=== PATIENT | male | born 1975 | race Caucasian/White ===

== ENCOUNTER 2017-04-18 07:24 | Emergency (ER) | payer BC, OTHER ==
[2017-04-18 07:35] VITALS: TEMP 98; BMI 27.9
[2017-04-18] MEDS ORDERED: SODIUM CHLORIDE 0.9% 1000 ML INFUS.BAG IV ONE (07:57)
[2017-04-18] MEDS ORDERED: ONDANSETRON 4 MG/2 ML VIAL IVPUSH ONE (07:57)
[2017-04-18] MEDS ORDERED: ONDANSETRON 4 MG/2 ML VIAL ONE (08:07)
[2017-04-18 08:49] LABS: BASOPHIL 0.7 % (0-2.0); EOSINOPHIL 2.5 % (0-4.5); MCH 28.6 pg (25.7-33.7); MCHC 33.5 g/dl (32.0-35.9); MEAN CELL VOLUME 85.4 fl (80-96); MEAN PLT VOLUME 8.8 fl (7.5-11.1); NEUTROPHILS 59.9 % (42.8-82.8); PLATELET COUNT 173 K/MM3 (134-434); RDW 13.6 % (11.9-15.9); WHITE BLOOD COUNT 5.5 K/mm3 (4.0-10.0)
[2017-04-18 09:03] LABS: ALBUMIN 3.9 g/dl (3.4-5.0); ANION GAP 4 (8-16); BILIRUBIN,TOTAL 0.5 mg/dL (0.2-1.0); CALCIUM 8.9 mg/dL (8.5-10.1); CO2 31 mmol/L (21-32); CREATININE 1.3 mg/dL (0.7-1.3); GLUCOSE,RANDOM 87 mg/dL (74-106); SGOT/AST 20 U/L (15-37); SGPT/ALT 29 U/L (12-78)
[2017-04-18 09:04] LABS: ALK PHOS 55 U/L (45-117); TOT PROT 6.9 g/dl (6.4-8.2)
[2017-04-18] MEDS ORDERED: FAMOTIDINE 20 MG/50 ML IVPB 50 ML IVPB ONE (09:25)
[2017-04-18] MEDS ORDERED: LIDOCAINE VISCOUS 2% ORAL/TOP 100 ML BOTTLE MM ONE (09:28)
[2017-04-18] MEDS ORDERED: MAG HYDROX/AL HYDROX/SIMETH 30 ML UNIT-DOSE CUP PO ONE (09:28)
--- NOTE | 2017-04-18 09:44 | PDOC ---
History of Present Illness - General History Source: Patient, Significant Other Exam Limitations: No Limitations - History of Present Illness Initial Comments: 04/18/17 09:45 The patient is a 42 year old male with a significant past medical history of gallstones, GERD, and bipolar disorder who presents to the emergency department with epigastric pain for approximately 1 month. He describes the epigastric pain as a squeezing, dull ache, rated 6/10 in severity. He notes that the epigastric pain sometimes radiates to his mid back. Patient reports he has had similar pain in the past beginning approximately 1 year ago, but this episode worsened 2 weeks ago after he consumed alcohol. He notes that the epigastric pain is usually exacerbated by spicy foods, fried foods, and alcohol. However, this past week patient has noted the epigastric pain is exacerbated with any food. The patient reports associated nausea and diaphoresis with his epigastric pain. Patient reports visiting his GI doctor last year where he had an endoscopy and ultrasound for gallstones. Patient reports being prescribed Protonix for the gallstones. The patient denies chest pain, shortness of breath, headache and dizziness. Denies fever, chills, vomit, diarrhea and constipation. Denies dysuria, frequency, urgency and hematuria. Allergies: NKA Past surgical history: Double hernia repair Social history: Occasional alcohol use. GI Doctor: Dr. Melgar <Pelon Crawford - Last Filed: 04/18/17 09:55> <Radha De La Cruz - Last Filed: 04/18/17 10:25> - General Chief Complaint: Pain, Acute Stated Complaint: STOMACH PAIN Past History <Pelon Crawford - Last Filed: 04/18/17 09:55> - Past Medical History Psychiatric Problems: Yes - Surgical History Abdominal Surgery: Yes (ing.hernia bilat) - Immunization History Immunization Up to Date: Yes - Psycho/Social/Smoking Cessation Hx Anxiety: Yes Suicidal Ideation: No Smoking Status: No Smoking History: Never smoked Have you smoked in the past 12 months: No Number of Cigarettes Smoked Daily: 0 Hx Alcohol Use: Yes (occasionally) Drug/Substance Use Hx: No Substance Use Type: Alcohol <Radha De La Cruz - Last Filed: 04/18/17 10:25> - Past Medical History Allergies/Adverse Reactions: Allergies Allergy/AdvReac Type Severity Reaction Status Date / Time No Known Allergies Allergy Verified 04/18/17 07:35 Home Medications: Ambulatory Orders Aspirin/Acetaminophen/Caffeine [Excedrin Migraine Caplet] 1 each PO PRN Naproxen Sodium [Aleve] 220 mg PO PRN 05/17/16 Pantoprazole Sodium [Protonix -] 40 mg PO DAILY #30 tablet.ec 05/18/16 Review of Systems - Review of Systems Comments:: 04/18/17 09:46 GENERAL/CONSTITUTIONAL: (+)Diaphoresis. No fever or chills. No weakness. HEAD, EYES, EARS, NOSE AND THROAT: No change in vision. No ear pain or discharge. No sore throat. CARDIOVASCULAR: No chest pain or shortness of breath. RESPIRATORY: No cough, wheezing, or hemoptysis. GASTROINTESTINAL: (+)Epigastric pain. (+) Nausea. No vomiting, diarrhea or constipation. GENITOURINARY: No dysuria, frequency, or change in urination. MUSCULOSKELETAL: (+) Midback pain. No joint pain. No neck pain. SKIN: No rash NEUROLOGIC: No headache, vertigo, loss of consciousness, or change in strength/ sensation. ENDOCRINE: No increased thirst. No abnormal weight change. HEMATOLOGIC/LYMPHATIC: No anemia, easy bleeding, or history of blood clots. ALLERGIC/IMMUNOLOGIC: No hives or skin allergy. <Pelon Crawford - Last Filed: 04/18/17 09:55> *Physical Exam - Vital Signs Last Vital Signs Temp Pulse Resp BP Pulse Ox 98.0 F 67 16 116/70 98 04/18/17 07:33 04/18/17 07:33 04/18/17 07:33 04/18/17 07:33 04/18/17 07:33 - Physical Exam Comments: 04/18/17 09:47 GENERAL: Awake, alert, and fully oriented, in no acute distress HEAD: No signs of trauma EYES: PERRLA, EOMI, sclera anicteric, conjunctiva clear ENT: Auricles normal inspection, hearing grossly normal, nares patent, oropharynx clear without exudates. Moist mucosa NECK: Normal ROM, supple, no lymphadenopathy, JVD, or masses LUNGS: Breath sounds equal, clear to auscultation bilaterally. No wheezes, and no crackles HEART: Regular rate and rhythm, normal S1 and S2, no murmurs, rubs or gallops ABDOMEN: (+) Mild epigastric tenderness. Normoactive bowel sounds. No guarding , no rebound. No masses. Negative [place]. BACK: No CVA tenderness. EXTREMITIES: Normal range of motion, no edema. No clubbing or cyanosis. No cords, erythema, or tenderness. DP/PT pulses 2+ and symmetric. NEUROLOGICAL: Cranial nerves II through XII grossly intact. Normal speech, normal gait SKIN: Warm, Dry, normal turgor, no rashes or lesions noted. <Pelon Crawford - Last Filed: 04/18/17 09:55> - Vital Signs Last Vital Signs Temp Pulse Resp BP Pulse Ox 98.0 F 67 16 116/70 98 04/18/17 07:33 04/18/17 07:33 04/18/17 07:33 04/18/17 07:33 04/18/17 07:33 <Radha De La Cruz - Last Filed: 04/18/17 10:25> ED Treatment Course - LABORATORY CBC & Chemistry Diagram: 04/18/17 08:35 04/18/17 08:35 - ADDITIONAL ORDERS Additional order review: Laboratory Results 04/18/17 08:35 Sodium 139 Potassium 4.1 Chloride 104 Carbon Dioxide 31 Anion Gap 4 L BUN 18 Creatinine 1.3 Creat Clearance w eGFR > 60 Random Glucose 87 Calcium 8.9 Total Bilirubin 0.5 AST 20 ALT 29 Alkaline Phosphatase 55 Total Protein 6.9 Albumin 3.9 Lipase 196 04/18/17 08:35 RBC 5.09 MCV 85.4 MCHC 33.5 RDW 13.6 MPV 8.8 Neutrophils % 59.9 Lymphocytes % 26.5 Monocytes % 10.4 H Eosinophils % 2.5 Basophils % 0.7 - RADIOLOGY Radiograph Interpretation: 04/18/17 09:48 Exam: Abdominal Ultrasound, interpreted by Dr. Carmen Reviewed by Dr. De La Cruz Impression: Cholelithiasis - Medications Given in the ED: ED Medications Discontinued Medications Generic Name Dose Route Start Last Admin Trade Name Freq PRN Reason Stop Dose Admin Ondansetron HCl 4 mg 04/18/17 07:57 04/18/17 08:20 Zofran Injection IVPUSH 04/18/17 07:58 4 mg ONCE ONE Administration Sodium Chloride 1,000 ml 04/18/17 07:57 04/18/17 08:19 Normal Saline - IV 04/18/17 07:58 1,000 ml ONCE ONE Administration <Pelon Crawford - Last Filed: 04/18/17 09:55> - LABORATORY CBC & Chemistry Diagram: 04/18/17 08:35 04/18/17 08:35 - ADDITIONAL ORDERS Additional order review: Laboratory Results 04/18/17 08:35 Sodium 139 Potassium 4.1 Chloride 104 Carbon Dioxide 31 Anion Gap 4 L BUN 18 Creatinine 1.3 Creat Clearance w eGFR > 60 Random Glucose 87 Calcium 8.9 Total Bilirubin 0.5 AST 20 ALT 29 Alkaline Phosphatase 55 Total Protein 6.9 Albumin 3.9 Lipase 196 04/18/17 08:35 RBC 5.09 MCV 85.4 MCHC 33.5 RDW 13.6 MPV 8.8 Neutrophils % 59.9 Lymphocytes % 26.5 Monocytes % 10.4 H Eosinophils % 2.5 Basophils % 0.7 - RADIOLOGY Radiology Studies Ordered: Category Date Time Status ABDOMEN US -LIMITED [US] Stat Ultrasound 04/18/17 08:13 Completed - Medications Given in the ED: ED Medications Discontinued Medications Generic Name Dose Route Start Last Admin Trade Name Famq PRN Reason Stop Dose Admin Ondansetron HCl 4 mg 04/18/17 07:57 04/18/17 08:20 Zofran Injection IVPUSH 04/18/17 07:58 4 mg ONCE ONE Administration Sodium Chloride 1,000 ml 04/18/17 07:57 04/18/17 08:19 Normal Saline - IV 04/18/17 07:58 1,000 ml ONCE ONE Administration <Radha De La Cruz - Last Filed: 04/18/17 10:25> Medical Decision Making - Medical Decision Making 04/18/17 09:40 42 yo male with h/o gallstones here today with c/o epigastric pain x one month. has had intermittent pain for one year, no vomiting, nausea only. no f/c no cp no sob. pain sharp, radiating to back. was able to eat dinner last night pain began shortly after. no change to stool. h see dr. sharpe, ( GI). has had EGD, unremarkable per pt, and us gb with stones. no primary doctor. no prior eval by surgeon. on exam awake alert. lungs normal. heart RRR. abbd min epigastric ttp. no rebound neg zavaleta's. nuero awake alert moves all ext. skin warm and ry plan: lft, lipase us g b. differnetial gastritis, cholelithiasisi, cholecystitis , pancreatitis. GERD. plan labs meds us reassess. 04/18/17 10:22 pt feeling improved after meds, tolerating PO. labs unremarkable. LFT and lipase normal. us with gallstones. will dc with surgery followup. plan d/w dr sharpe/. pt has appt scheduled in few weeks. <Radha De La Cruz - Last Filed: 04/18/17 10:25> *DC/Admit/Observation/Transfer - Attestations Scribe Attestion: 04/18/17 09:48 Documentation prepared by Pelon Crawford, acting as medical laboratory technical officer for Radha De La Cruz MD. <Pelon Crawford - Last Filed: 04/18/17 09:55> - Discharge Dispostion Admit: No <Radha De La Cruz - Last Filed: 04/18/17 10:25> Diagnosis at time of Disposition: Biliary colic - Discharge Dispostion Disposition: HOME Condition at time of disposition: Improved - Referrals Referrals: Nathaniel Melgar MD [Staff Physician] - Lucio Neville MD [Staff Physician] - - Patient Instructions Printed Discharge Instructions: Gallstones Additional Instructions: follow up with your primary doctor . if you do not have one should call your insurance company for list of providers. you should also follow up with dr. Sharpe, see referral number. you can call to see a surgeon to discuss elective gallbladder surgery for persistant symptoms, see referral for surgeon DR. Neville and call to schedule. return for fever, persistant pain, vomiting or any concerns.
[2017-04-18 10:46] VITALS: BP 113/68; PULSE 65
--- NOTE | 2017-04-20 16:49 | EKG ---
Test Reason : Blood Pressure : / mmHG Vent. Rate : 054 BPM Atrial Rate : 054 BPM P-R Int : 170 ms QRS Dur : 096 ms QT Int : 438 ms P-R-T Axes : 047 007 017 degrees QTc Int : 415 ms SINUS BRADYCARDIA INFERIOR INFARCT , AGE UNDETERMINED ABNORMAL ECG NO PREVIOUS ECGS AVAILABLE Confirmed by SANAZ OCONNELL MD ([id number]) on 04/20/2017 4:49:27 PM Referred By: Confirmed By:SANAZ OCONNELL MD
== END 2017-04-18 10:46 | disposition home or self-care (01) ==
LOC: JER 07:24
PROC: 3E033GC Introduction of Other Therapeutic Substance into Peripheral Vein, Percutaneous Approach (ICD-10-PCS; principal; 2017-04-18)
DX: K80.50 Calculus of bile duct without cholangitis or cholecystitis without obstruction (principal); F41.9 Anxiety disorder, unspecified; F31.9 Bipolar disorder, unspecified; K21.9 Gastro-esophageal reflux disease without esophagitis
CPT/HCPCS: 36415; 76705-TC; 80053; 83690; 85025; 93005; 93010; 99283-25